=== PATIENT | male | born 1975 | race Caucasian/White ===

== ENCOUNTER 2019-09-25 16:25 | Emergency (ER) | payer BC ==
[2019-09-25 16:35] VITALS: BP 136/83
--- NOTE | 2019-09-25 18:36 | UC ---
Eye Complaint HPI - HPI Summary HPI Summary: 44-year-old male presenting with complaint of right eye redness and mild intermittent itching 3 days. Denies discharge and crusting. Denies vision changes. States "it just feels uncomfortable." He believes he may have hit himself in the eye with his knuckle while sleeping. Denies any actual known trauma or injury to eye. States it feels scratchy at times like something is in it. Denies surrounding erythema or edema of eye. Denies contact lens use. Denies symptoms in left eye. Denies recent URI symptoms. Denies environmental allergies. States he has been placing [id number] eyedrops in his eyes which relieves the redness temporarily. - History of Current Complaint Chief Complaint: UCEye Stated Complaint: EYE COMPLAINT Hx Obtained From: Patient Pain Intensity: 4 Pain Scale Used: 0-10 Numeric Alleviating Factor(s): Eye Drops - Allergies/Home Medications Allergies/Adverse Reactions: Allergies Allergy/AdvReac Type Severity Reaction Status Date / Time No Known Allergies Allergy Verified 09/25/19 16:35 PMH/Surg Hx/FS Hx/Imm Hx Previously Healthy: Yes - Surgical History Surgical History: Yes Surgery Procedure, Year, and Place: left collar bone removed after blood clot removed - Family History Known Family History: Positive: Non-Contributory - Social History Alcohol Use: Occasionally Substance Use Type: None Smoking Status (MU): Former Smoker Type: Cigarettes Length of Time of Smoking/Using Tobacco: rare occasionally Review of Systems All Other Systems Reviewed And Are Negative: Yes Constitutional: Positive: Negative. Negative: Fever, Chills Eyes: Positive: Eye Redness - right, Other - right eye itching. Negative: Blurred Vision, Diplopia, Drainage, Photophobia ENT: Positive: Negative Respiratory: Positive: Negative Cardiovascular: Positive: Negative Musculoskeletal: Positive: Negative Neurological: Positive: Negative Physical Exam Triage Information Reviewed: Yes Appearance: Well-Appearing, No Pain Distress, Well-Nourished Vital Signs: Initial Vital Signs Temp 98.0 F 09/25/19 16:31 Pulse 77 09/25/19 16:31 Resp 18 09/25/19 16:31 BP 136/83 09/25/19 16:31 Pulse Ox 96 09/25/19 16:31 Vital Signs Reviewed: Yes Eye Exam: Other - PERRLA. EOM intact Eyes: Positive: Conjunctiva Inflamed - right, Other: - no hematoma noted. no foreign bodies, abrasions, or ulcerations noted upon fluiorescein staining. no eyelid or periorbital edema. Negative: Discharge ENT Exam: Normal ENT: Positive: Hearing grossly normal, Pharynx normal, TMs normal, Uvula midline Neck exam: Normal Neck: Positive: Supple, Nontender, No Lymphadenopathy Respiratory Exam: Normal Respiratory: Positive: Lungs clear, Normal breath sounds, No respiratory distress Cardiovascular Exam: Normal Cardiovascular: Positive: RRR Neurological: Positive: Alert Psychological: Positive: Age Appropriate Behavior Skin Exam: Normal - no erythema or ecchymosis noted Eye Complaint Course/Dx - Course Course Of Treatment: Patient presenting with right eye redness and intermittent itching and foreign body sensation 3 days. No vision changes. Fluorescein staining did not reveal any abrasions, ulcerations, or obvious foreign bodies. Educated on causes of conjunctivitis and instructed to continue with normal saline or antihistamine drops [id number]. Bacterial infection not likely based on history and physical exam findings. Instructed to follow-up with Dr. Mayfield for recheck of symptoms and to receive annual eye exam within the next few days. Patient voiced understanding and agreed with the treatment plan. - Differential Dx/Diagnosis Differential Diagnosis/HQI/PQRI: Conjunctivitis, Corneal Abrasion, Foreign Body Provider Diagnosis: Acute conjunctivitis, right eye Discharge ED - Sign-Out/Discharge Documenting (check all that apply): Patient Departure All imaging exams completed and their final reports reviewed: No Studies - Discharge Plan Condition: Stable Disposition: HOME Patient Education Materials: Conjunctivitis (ED) Referrals: Stephon Mayfield MD [Medical Doctor] - 2 Days Additional Instructions: As discussed, there were no foreign bodies, abrasions, or ulcerations noted on your eye exam today. Your symptoms are likely caused by a virus or allergy and should resolve without treatment. You may continue to place the normal saline or antihistamine drops in the eye, such as visine, alaway, or systane. These can be found over the counter. Allergy medication, such as Zyrtec, may also relieve symptoms. You may also take over the counter pain medications as directed for pain relief. Follow up within the next couple days with Dr. Mayfield listed below to have your annual eye exam and current symptoms rechecked. - Billing Disposition and Condition Condition: STABLE Disposition: Home - Attestation Statements Provider Attestation: I was available for consult. This patient was seen by the [facility]. The patient was not presented to, seen by, or examined by me. -Ha
[2019-09-25] MEDS ORDERED: Fluorescein Sodium TOPICAL* 1 MG TEST STRIP OPHTHALMIC ONE (18:41)
== END 2019-09-25 19:31 | disposition home or self-care (01) ==
LOC: UCEAST 16:25
DX: H10.31 Unspecified acute conjunctivitis, right eye (principal); Z87.891 Personal history of nicotine dependence
CPT/HCPCS: 99201; A9270-GY; G0463